=== PATIENT | female | born 1990 | race American Indian/Alaskan Native ===

== ENCOUNTER 2016-10-15 03:36 | Emergency (ER) | payer SELFPAY ==
[2016-10-15 04:09] VITALS: BP 116/74
[2016-10-15] MEDS ORDERED: NORCO 5/325 ONE (04:22)
[2016-10-15] MEDS ORDERED: NORCO 5/325 PO ONE (04:26)
[2016-10-15 05:09] LABS: Basophils % (Auto) 0.4 % (0.0-1.8); Eosinophils % (Auto) 1.6 % (0.0-4.3); Hemoglobin 11.7 gm/dl (10.1-14.3); Mean Corpuscular HGB Conc 33 % (30-34); Mean Corpuscular Hemoglobin 30 pg (28-32); Mean Corpuscular Volume 91 fl (79-97); Platelet Count 230 K/mm3 (140-440); Red Blood Count 3.94 M/mm3 (3.65-5.03); Red Cell Distribution Width 14.1 % (13.2-15.2); White Blood Count 11.3 K/mm3 (4.5-11.0)
[2016-10-15 05:28] LABS: Alanine Aminotransferase 16 units/L (7-56); Albumin 3.8 g/dL (3.9-5); Albumin/Globulin Ratio 1.1 %; Alkaline Phosphatase 58 units/L (35-129); Anion Gap 21 mmol/L; Blood Urea Nitrogen 16 mg/dL (7-17); Calcium 8.4 mg/dL (8.4-10.2); Carbon Dioxide 19 mmol/L (22-30); Chloride 101.8 mmol/L (98-107); Glucose 89 mg/dL (65-100); Lipase 14 units/L (13-60); Potassium 3.3 mmol/L (3.6-5.0); Sodium 138 mmol/L (137-145); Total Protein 7.3 g/dL (6.3-8.2)
--- NOTE | 2016-10-16 10:52 | ED Elopement Review ---
ED Pt Elopement review - Results review Lab results: Laboratory Tests 10/15/16 10/15/16 10/15/16 04:35 04:35 04:35 WBC 11.3 H RBC 3.94 Hgb 11.7 Hct 36.0 MCV 91 MCH 30 MCHC 33 RDW 14.1 Plt Count 230 Lymph % (Auto) 11.5 L Randall % (Auto) 5.1 Eos % (Auto) 1.6 Baso % (Auto) 0.4 Lymph # 1.3 Randall # 0.6 Eos # 0.2 Baso # 0.0 Seg Neutrophils % 81.4 H Seg Neutrophils # 9.2 H Sodium 138 Potassium 3.3 L Chloride 101.8 Carbon Dioxide 19 L Anion Gap 21 BUN 16 Creatinine 0.4 L Estimated GFR > 60 BUN/Creatinine Ratio 40.00 Glucose 89 Calcium 8.4 Total Bilirubin 0.20 AST 22 ALT 16 Alkaline Phosphatase 58 Total Protein 7.3 Albumin 3.8 L Albumin/Globulin Ratio 1.1 Lipase 14 HCG, Quant 1589 H Blood Type Antibody Screen [facility] Antibody Screen 10/15/16 04:35 WBC RBC Hgb Hct MCV MCH MCHC RDW Plt Count Lymph % (Auto) Randall % (Auto) Eos % (Auto) Baso % (Auto) Lymph # Randall # Eos # Baso # Seg Neutrophils % Seg Neutrophils # Sodium Potassium Chloride Carbon Dioxide Anion Gap BUN Creatinine Estimated GFR BUN/Creatinine Ratio Glucose Calcium Total Bilirubin AST ALT Alkaline Phosphatase Total Protein Albumin Albumin/Globulin Ratio Lipase HCG, Quant Blood Type B POSITIVE Antibody Screen TNR [facility] Antibody Screen Negative - Call Back decision Pt Call Back Decision: Call pt to return to ED [facility] (vaginal bleeding, patient , no ultrasound done)
== END 2016-10-15 05:40 | disposition left against medical advice (07) ==
LOC: ED 03:36
DX: O20.9 Hemorrhage in early pregnancy, unspecified (principal); F12.90 Cannabis use, unspecified, uncomplicated; Z3A.13 13 weeks gestation of pregnancy; Z53.21 Procedure and treatment not carried out due to patient leaving prior to being seen by health care provider
CPT/HCPCS: 80053; 83690; 84702; 85025; 86850; 86900; 86901